=== PATIENT | female | born 1950 | race Caucasian/White ===

== ENCOUNTER 2016-10-31 21:58 | Emergency (ER) | payer OTHER ==
--- NOTE | 2016-11-01 02:02 | ED ORDER SUMMARY ---
..... Patient: ALYX HOUGH OrderSheet [facility] VisitID: [id number] [place] [address] 66y, F Registration Date/Time: 10/31/2016 ORDER SHEET Weight: 81.1 kg Allergies: Codeine GENERAL ORDERS: Pricing Director (Continuous) (22:06 10/31/2016 Miles HERMOSILLO) (22:34 EBonleon) CBC w Diff Urgent (22:06 10/31/2016 Miles HERMOSILLO) (Ack 22:13 Marii) (22:42 LMuller) CMP Urgent (22:06 10/31/2016 Miles HERMOSILLO) (Ack 22:13 Marii) (22:42 LMuller) Urine Drug Screen Urgent (22:06 10/31/2016 Miles HERMOSILLO) (Ack 22:13 Marii) (22:34 EBonleon) Pulse oximeter (22:06 10/31/2016 Miles HERMOSILLO) (22:34 EBonleon) CO2 Monitoring (22:06 10/31/2016 Miles HERMOSILLO) (22:34 EBonham) ABG (G) Urgent (22:40 10/31/2016 Brian verbal order read back to Miles HERMOSILLO) (Ack 22:42 LMuller) (23:27 LMuller) EKG - ER Stat (22:54 10/31/2016 Brian per protocol) (Ack 22:55 LMuller) (23:27 LMuller) MEDICATION ORDERS: IV FLUIDS: IV Saline Lock (22:06 10/31/2016 Miles HERMOSILLO) (22:35 EBonleon) Zofran IV 4 mg (NOW) (22:35 10/31/2016 Brian verbal order read back to Miles HERMOSILLO) (22:35 EBonleon) Solu-MEDROL IV 40 mg (NOW) (01:15 11/01/2016 Miles HERMOSILLO) (1:50 EBonleon) ORDER SHEET NOTES: [Electronically signed by Anika Hines (02:25 11/01/2016)] [Electronically signed by Kvng Connors MD (19:04 11/02/2016)] [Electronically locked/signed by Anika Hines (02:25 11/01/2016)]
--- NOTE | 2016-11-01 02:02 | ED NURSING NOTES ---
Clinical Report - Nurses [facility] [address] [place] [address] 10/31/2016 21:58 Patient: ALYX HOUGH TRIAGE Triage time 2200. Acuity: LEVEL 2. Chief Complaint: DRUG OVERDOSE and ACCIDENTAL INGESTION. Alert. --22:15 Anika Hines 22:10 10/31/16. BP: 153/86. HR: 72. RR: 28. O2 saturation: 96%. Temp: 97.5 F. Pain level now 11/11. --22:15 Anika Hines. Weight: 81.1 kg. Height/Length: 68 inches. BMI: 27.2. --22:09 Anika Hines. Medications Aleve Oral. --22:12 Anika Hines Letrozole Oral. --22:12 Anika Hines LORazepam Oral. --22:12 Anika Hines Morphine Sulfate ER Oral. --22:13 Anika Hines Dilaudid Oral. --22:13 Anika Hines. Allergies Codeine. --22:13 Anika Hines. History Arrived by EMS. Historian: EMS. This occurred just prior to arrival. ( Pt took dilaudid 4mg x 3 thinking it was her lorazepam, mild confusion, low )2 sats on EMS arrival, pt called 911 herself when "it hit me I knew it wasn't lorazepam"). SOCIAL HX: Light tobacco smoker (cigarette)- less than 1/2 a pack per day. --22:15 Anika Hines. PROBLEMS: Cancer. Flank Pain. Appendicitis. Leukocytosis. Bronchitis. Hyperglycemia. Dehydration. Pneumonia. PTSD. Anxiety Reaction. --22:14 Anika Hines. ADDITIONAL SURGERIES: Bladder Suspension. Hysterectomy. Tonsillectomy. --22:14 Anika Hines. Interventions ID band on patient. To treatment room. --22:15 Anika Hines. PHYSICAL ASSESSMENT To room via stretcher. GENERAL / NEURO / PSYCH: Appears anxious. Patient's mood/affect appears abnormal. The patient is disoriented (some disorientation to events and situation). Patient's speech is abnormal. She appears to have altered thought processes. RESPIRATORY: Respirations not labored. Breath sounds within normal limits. CVS: Normal sinus rhythm noted. Capillary refill less than 2 seconds. GI / : Abdomen soft and nontender. Bowel sounds within normal limits. SKIN: Skin intact. Skin is warm and dry. Skin color is within normal limits. --22:16 Anika Hines. NURSING PROGRESS NOTES 22:17 10/31/2016 Site #1 started via IV in the left hand with an 20g angiocath, with aseptic technique and good blood return; one attempt. Saline lock flushed with 10 mL saline. --22:17 Anika Hines 22:35 10/31/2016 Zofran (Ondansetron HCl) IVP 4 mg given over 1 minute(s) via site #1. Allergies verified and confirmed 5 rights. IV patency established. IV site checked: no pain, redness, or swelling. IV flushed thoroughly pre- and post-medication administration. IVP given by RN. --22:35 Anika Hines Cardiac rhythm: normal sinus rhythm. Oxygen administered by nasal cannula at 6 liters. Monitoring of patient in place. Checked patient name and birthdate: patient confirmed. Blood samples drawn by nurse ; labeled in presence of the patient and sent to lab. (ABG, sterile technique, left wrist, pressure applied). Reassurance given. Call light placed in reach. Side rails up x 2. Bed placed in lowest position. Brakes of bed on. Patient ready for evaluation- ED physician notified. --22:37 Anika Hines Patient ID band checked for patient name and birthdate: patient confirmed. Blood samples drawn from the left forearm with syringe and 23g butterfly by tech per protocol ; labeled in presence of the patient and sent to lab: rainbow set. --22:42 Hilary Garcia The patient reports no complaints and she is calm and resting quietly. Overall patient status is improved- she states feels better. --23:26 Anika Hines 23:23 10/31/16. BP: 127/75. HR: 75. RR: 12. O2 saturation: 98%. End tidal CO2: 31mmHg. --23:26 Anika Hines EKG time: (2314). EKG was ordered, performed by a tech and shown to the ED physician. --23:28 Clary Jain The patient is calm and resting quietly. Overall patient status is improved- she states feels better. --00:17 Anika Hines 00:16 11/01/16. BP: 138/75. HR: 70. RR: 12. O2 saturation: 95%. --00:17 Anika Hines 01:50 11/01/2016 SOLU-MEDROL (MethylPREDNISolone Sodium Succ) IVP 40 mg given. via site #1. Allergies verified and confirmed 5 rights. IV patency established. IV site checked: no pain, redness, or swelling. IV flushed thoroughly pre- and post-medication administration. IVP given by RN. --01:50 Anika Hines Reassessment after medication administered. She has had no adverse reaction. Overall patient status is improved- she states feels better. --02:25 Anika Hines. DISPOSITION / DISCHARGE 02:11/01/2016 Site #1 removed upon discharge. Pressure dressing applied. --02:24 Anika Hines Departure time: 224. Condition at departure: improved and stable. No learning barriers present. Discharge instructions provided and reviewed with the patient. Reviewed warnings. Patient verbalized understanding. Written instructions provided in Yemeni. The patient was discharged by the physician. She was discharged home and accompanied by replenishment analyst. She left the Emergency Department ambulatory and via private vehicle. Siphon Operator driving. --02:25 Anika Hines 02:24 11/01/16. BP: 117/78. HR: 73. RR: 16. O2 saturation: 96%. Pain level now 0/10. --02:25 Anika Hines. Locked/Released at 11/01/2016 2:25 by Anika Hines,
--- NOTE | 2016-11-01 02:02 | ED CLINICAL REPORT ---
Clinical Report - Physicians/Mid Levels [facility] [address] [place] [address] 10/31/2016 21:58 Patient: ALYX HOUGH Time Seen: 22:01 Oct 31 2016. Arrived- By ambulance. Historian- patient and EMS personnel. CPT: ER phys charges level 4 (#[id number]). HISTORY OF PRESENT ILLNESS Chief Complaint: DRUG OVERDOSE and ACCIDENTAL INGESTION. This occurred just prior to arrival. (Pt called 911 after she found out she took the wrong medication.). Toxic symptoms present in ED. Single drug ingested- Accidentally took 12 mg of dilaudid po. The patient sought help. (Pt is on morphine and dilaudid for metastatic breast cancer.). No situational problems, alcohol recently or recent drug use. The symptoms are described as moderate. Has not been depressed or upset. No anger, suicidal thoughts, hallucinations or delusions. (Pt not suicidal). Similar symptoms previously: None. Recent medical care: Not recently seen/assessed. REVIEW OF SYSTEMS No headache, dizziness, weakness, chest pain or palpitations. No vomiting, diarrhea, black stools, fever or sore throat. No cough, difficulty breathing, difficulty with urination, skin rash or enlarged lymph nodes. The patient has had abdominal pain (chronically). All systems otherwise negative, except as recorded above. PAST HISTORY ( Appendicitis. Leukocytosis. Bronchitis. Hyperglycemia. Dehydration. Pneumonia. PTSD. Anxiety Reaction. Breast cancer with mets to the spine and liver. On narcotics for pain control. ADDITIONAL SURGERIES: Bladder Suspension. Hysterectomy. Tonsillectomy.). SOCIAL HISTORY Light tobacco smoker (cigarette)- less than 1/2 a pack per day. No alcohol use or drug use. FAMILY HISTORY Negative. ADDITIONAL NOTES The nursing notes have been reviewed. PHYSICAL EXAM Vital Signs: 10/31/2016 22:10 BP: 153/86. HR: 72. RR: 28. O2 saturation: 96%. Temp: 97.5 F. Appearance: No acute distress. (Mildly lethargic.). Eyes: Pupils equal, round and reactive to light. No nystagmus. Extraocular movements normal. ENT: Normal ENT inspection. TM's normal. Pharynx normal. Neck: Normal inspection. Neck supple. CVS: Normal heart rate and rhythm. Heart sounds normal. Pulses normal. Respiratory: No respiratory distress. Breath sounds normal. Abdomen: Soft. Skin: Normal skin color. No rash. Extremities: Extremities exhibit normal ROM. Neuro: Oriented X 3. Mood/affect normal. Dysarthria. Cranial nerves normal (as tested). No cerebellar findings. No motor deficit. No sensory deficit. Reflexes normal. LABS, X-RAYS, AND EKG EKG: No acute ischemia. Normal sinus rhythm. Normal P waves. Normal QRS complex. Normal axis. Normal ST and T waves. The study has been interpreted contemporaneously. The study has been independently viewed by me. The EKG appears to be a good tracing. Laboratory Tests: CBC w Diff: (NITIN: 10/31/2016 22:27) ( MsgRcvd 10/31/2016 23:03) Final results Test Result Flag Units (Reference) WHITE BLOOD COUNT 5.8 K/uL (4.5-11.5) RED BLOOD COUNT 4.22 M/uL (4.00-5.20) HEMOGLOBIN 13.1 gm/dL (12.0-16.0) HEMATOCRIT 39.9 % (36.0-46.0) MEAN CELL VOLUME 94 fL (80-100) MEAN CORPUSCULAR HGB 31 pg (26-34) MEAN CORPUSCULAR HGB CONC 33 g/dL (31-37) RED CELL DISTRIBUTION WIDTH 21.5 H % (11.6-14.8) PLATELET COUNT 289 K/uL (150-400) NEUTROPHIL % 55.5 % (50-75) LYMPH % 28.8 % (25-40) MONO % 14.6 H % (3-14) EOSINOPHIL % 0.3 % (0-4) BASOPHIL % 0.8 % (0-2) RBC MORPHOLOGY 1+ ANISOCYTOSIS CMP: (NITIN: 10/31/2016 22:27) ( MsgRcvd 10/31/2016 22:53) Final results Test Result Flag Units (Reference) GLUCOSE 104 mg/dL (70-110) BUN 15 mg/dL (7-18) CREATININE 1.3 mg/dL (0.6-1.3) Estimated GFR 43.69 mL/min Estimated GFR- 52.95 mL/min Note: Persistent reduction over 3 months in eGFR<60 mL/min/1.73 m2 defines CKD. Patients with eGFR values>=60 mL/min/1.73 m2 may also have CKD if evidence ofpersistent proteinuria. Additional information may be foundat www.kidney.org. SODIUM 144 mmol/L (136-145) POTASSIUM 3.6 mmol/L (3.5-5.1) CHLORIDE 108 H mmol/L (98-107) CARBON DIOXIDE 24 mmol/L (21-32) CALCIUM 9.0 mg/dL (8.5-10.1) TOTAL PROTEIN 6.6 g/dL (6.4-8.2) ALBUMIN 3.3 g/dL (3.3-5.0) BILIRUBIN, TOTAL 0.3 mg/dL (0.0-1.0) ALKALINE PHOSPHATASE 79 U/L (46-116) AST (SGOT) 73 H U/L (15-37) ALT (SGPT) 53 U/L (12-78) ABG: (NITIN: 10/31/2016 22:40) ( MsgRcvd 10/31/2016 22:52) Final results Test Result Flag Units (Reference) FIO2 34 % (20-101) ABG MODE OF DELIVERY NC MODIFIED TERA TEST POSITIVE? YES LITERS PER MIN. 4 L/MIN (0-20) ARTERIAL BLOOD GAS SITE RR ARTERIAL BLOOD GAS pH 7.52 H (7.35-7.45) ABG PCO2 31.4 L mmHg (35-45) ABG PO2 87.2 H mmHg (60.0-80.0) ABG BASE EXCESS 2.7 H mmol/L (-6.0--6.0) ABG HCO3 25.6 mmol/L (20.0-26.0) ABG TCO2 26.5 mmol/L (24.0-30.0) ABG [id number] 120.7 H mmHg (7.0-14.0) *NOTE: Normal rangeis based on aFIO2 of 21% ABG SAT O2 98.5 % (95.1-100.0) ABG TOTAL HEMOGLOBIN 12.8 g/dL (12.0-16.0) ABG O2 HEMOGLOBIN 94.9 L % (95.0-100.0) ABG CARBOXYHEMOGLOBIN 3.5 H % (0.5-1.5) ABG METHEMOGLOBIN 0.2 L % (0.4-1.5) ABG RHEMOGLOBIN 1.4 % . PROGRESS AND PROCEDURES Course of Care: 01:14 11/01/16. during ER observation the patient does not show any emergent symptoms associated with a narcotic overdose. Her end-tidal CO2 remained normal as well as her O2 sat. Her vital signs remained normal as well. Patient did start to complain of some itchiness over the skin in general. She says she'll get this sometimes with her medications. Solu-Medrol 40 mg IV given as she doesn't want to try Benadryl due to side effects in the past. Patient/family counseled. Disposition: Discharged. Condition: stable and improved. CLINICAL IMPRESSION Accidental overdose on dilaudid. Chronic pain Generalized pruritus possibly due to medications. INSTRUCTIONS No strenuous activity. (No dilaudid for the next 24 hours.). Warnings: Further evaluation is necessary. GENERAL WARNINGS: Return or contact your physician immediately if your condition worsens or changes unexpectedly, if not improving as expected, or if other problems arise. Your Current Medications: STOP TAKING THE FOLLOWING MEDICATIONS: Dilaudid Oral. Follow-up: Follow up with your doctor in two days. Call for an appointment. Understanding of the discharge instructions verbalized by patient. (Electronically signed by Kvng Connors MD 11/02/2016 19:04)
--- NOTE | 2016-11-01 02:02 | ED ORDER SUMMARY ---
..... Patient: ALYX HOUGH OrderSheet [facility] VisitID: [id number] [place] [address] 66y, F Registration Date/Time: 10/31/2016 ORDER SHEET Weight: 81.1 kg Allergies: Codeine GENERAL ORDERS: Corporate Physical Security Supervisor (Continuous) (22:06 10/31/2016 Miles HERMOSILLO) (22:34 EBonleon) CBC w Diff Urgent (22:06 10/31/2016 Miles HERMOSILLO) (Ack 22:13 Marii) (22:42 LMuller) CMP Urgent (22:06 10/31/2016 Miles HERMOSILLO) (Ack 22:13 Marii) (22:42 LMuller) Urine Drug Screen Urgent (22:06 10/31/2016 Miles HERMOSILLO) (Ack 22:13 Marii) (22:34 EBonleon) Pulse oximeter (22:06 10/31/2016 Miles HERMOSILLO) (22:34 EBonleon) CO2 Monitoring (22:06 10/31/2016 Miles HERMOSILLO) (22:34 EBonham) ABG (G) Urgent (22:40 10/31/2016 Brian verbal order read back to Miles HERMOSILLO) (Ack 22:42 LMuller) (23:27 LMuller) EKG - ER Stat (22:54 10/31/2016 Brian per protocol) (Ack 22:55 LMuller) (23:27 LMuller) MEDICATION ORDERS: IV FLUIDS: IV Saline Lock (22:06 10/31/2016 Miles HERMOSILLO) (22:35 EBonleon) Zofran IV 4 mg (NOW) (22:35 10/31/2016 Brian verbal order read back to Miles HERMOSILLO) (22:35 EBonleon) Solu-MEDROL IV 40 mg (NOW) (01:15 11/01/2016 Miles HERMOSILLO) (1:50 EBonleon) ORDER SHEET NOTES: [Electronically signed by Anika Hines (02:25 11/01/2016)] [Electronically signed by Kvng Connors MD (19:04 11/02/2016)] [Electronically locked/signed by Anika Hines (02:25 11/01/2016)]
--- NOTE | 2016-11-02 19:04 | ED DISCHARGE INSTRUCTIONS ---
Patient: ALYX HOUGH General Instructions [facility] VisitID: [id number] [place] [address] 66y, F Registration Date/Time: 10/31/2016 Accidental overdose on dilaudid. Chronic pain Generalized pruritus possibly due to medications. INSTRUCTIONS No strenuous activity. (No dilaudid for the next 24 hours.). Warnings: Further evaluation is necessary. GENERAL WARNINGS: Return or contact your physician immediately if your condition worsens or changes unexpectedly, if not improving as expected, or if other problems arise. Your Current Medications: STOP TAKING THE FOLLOWING MEDICATIONS: Dilaudid Oral. Follow-up: Follow up with your doctor in two days. Call for an appointment. Understanding of the discharge instructions verbalized by patient. No strenuous activity. (Electronically signed by Kvng Connors MD 11/02/2016 19:04)
--- NOTE | 2016-11-02 19:04 | ED MAR SUMMARY ---
..... Medication Administration Record [facility] [address] [place] [address] Patient: ALYX HOUGH Visit ID: [id number] 66y, F Weight: 81.1 kg Height/Length: 68 in BMI: 27.2 ALLERGIES: Codeine Given 22:35 10/31/2016 Anika Hines, Medication Administered: ZOFRAN [IVP] (ONDANSETRON HCL), Dose: 4 mg IVP over 1 minute(s), Site: #1 left hand. Medication Ordered: Zofran IV 4 mg (NOW). Given 01:50 11/01/2016 Anika Hines, Medication Administered: SOLU-MEDROL [IVP] (METHYLPREDNISOLONE SODIUM SUCC), Dose: 40 mg IVP, Site: #1 left hand. Medication Ordered: Solu-MEDROL IV 40 mg (NOW).
--- NOTE | 2016-11-02 19:04 | ED MED RECONCILIATION SUMMARY ---
Patient: ALYX HOUGH Medication Reconciliation Report [facility] VisitID: [id number] [address] [place] [address] 66y, F Registration Date/Time: 10/31/2016 Weight: 81.1 kg Height/Length: 68 in. BMI: 27.2 ALLERGIES: Codeine The patient's Home Medications are listed below: STOP TAKING THE FOLLOWING MEDICATIONS: Dilaudid Oral THE FOLLOWING MEDICATIONS NEED TO BE RECONCILED: Aleve Oral Letrozole Oral LORazepam Oral Morphine Sulfate ER Oral The source(s) of the original Home Medication information: Not obtained. The following Medications were given to the patient in the Emergency Department: Zofran [IVP] IVP 4 mg, administered: 10/31/2016 10:35:00 PM SOLU-MEDROL [IVP] IVP 40 mg, administered: 11/01/2016 1:50:00 AM The following Medications were prescribed to the patient: None.
--- NOTE | 2016-11-02 19:04 | ED DISCHARGE INSTRUCTIONS ---
Patient: ALYX HOUGH General Instructions [facility] VisitID: [id number] [place] [address] 66y, F Registration Date/Time: 10/31/2016 Accidental overdose on dilaudid. Chronic pain Generalized pruritus possibly due to medications. INSTRUCTIONS No strenuous activity. (No dilaudid for the next 24 hours.). Warnings: Further evaluation is necessary. GENERAL WARNINGS: Return or contact your physician immediately if your condition worsens or changes unexpectedly, if not improving as expected, or if other problems arise. Your Current Medications: STOP TAKING THE FOLLOWING MEDICATIONS: Dilaudid Oral. Follow-up: Follow up with your doctor in two days. Call for an appointment. Understanding of the discharge instructions verbalized by patient. No strenuous activity. (Electronically signed by Kvng Connors MD 11/02/2016 19:04)
--- NOTE | 2016-11-02 19:04 | ED MAR SUMMARY ---
..... Medication Administration Record [facility] [address] [place] [address] Patient: ALYX HOUGH Visit ID: [id number] 66y, F Weight: 81.1 kg Height/Length: 68 in BMI: 27.2 ALLERGIES: Codeine Given 22:35 10/31/2016 Anika Hines, Medication Administered: ZOFRAN [IVP] (ONDANSETRON HCL), Dose: 4 mg IVP over 1 minute(s), Site: #1 left hand. Medication Ordered: Zofran IV 4 mg (NOW). Given 01:50 11/01/2016 Anika Hines, Medication Administered: SOLU-MEDROL [IVP] (METHYLPREDNISOLONE SODIUM SUCC), Dose: 40 mg IVP, Site: #1 left hand. Medication Ordered: Solu-MEDROL IV 40 mg (NOW).
--- NOTE | 2016-11-02 19:04 | ED MED RECONCILIATION SUMMARY ---
Patient: ALYX HOUGH Medication Reconciliation Report [facility] VisitID: [id number] [address] [place] [address] 66y, F Registration Date/Time: 10/31/2016 Weight: 81.1 kg Height/Length: 68 in. BMI: 27.2 ALLERGIES: Codeine The patient's Home Medications are listed below: STOP TAKING THE FOLLOWING MEDICATIONS: Dilaudid Oral THE FOLLOWING MEDICATIONS NEED TO BE RECONCILED: Aleve Oral Letrozole Oral LORazepam Oral Morphine Sulfate ER Oral The source(s) of the original Home Medication information: Not obtained. The following Medications were given to the patient in the Emergency Department: Zofran [IVP] IVP 4 mg, administered: 10/31/2016 10:35:00 PM SOLU-MEDROL [IVP] IVP 40 mg, administered: 11/01/2016 1:50:00 AM The following Medications were prescribed to the patient: None.
== END 2016-11-01 02:20 | disposition home or self-care (01) ==
LOC: ED SRH 21:58
DX: T40.2X1A Poisoning by other opioids, accidental (unintentional), initial encounter (principal); G89.3 Neoplasm related pain (acute) (chronic); L29.9 Pruritus, unspecified; C50.919 Malignant neoplasm of unspecified site of unspecified female breast; C78.7 Secondary malignant neoplasm of liver and intrahepatic bile duct; C79.51 Secondary malignant neoplasm of bone; R10.9 Unspecified abdominal pain; Z79.891 Long term (current) use of opiate analgesic; F17.210 Nicotine dependence, cigarettes, uncomplicated
CPT/HCPCS: 90100; 95059